=== PATIENT | female | born 1950 | race Caucasian/White ===

== ENCOUNTER 2016-12-23 06:50 | Day surgery (SDC) | payer MEDICARE, BC, OTHER ==
[~2016-12-23] VITALS: Ht 162.6 cm; Wt 87.1 kg
[~2016-12-23 06:50] MED LIST: ADVAIR 500-501 EACH INH; AZELASTINE205.5 MCG/ NS; AZO STANDARD95 MG PO; CELECOXIB200 MG PO; DIAZEPAM2 MG PO; GABAPENTIN300 MG PO; ICAPS TABLET1 EACH PO; LEVOTHYROXINE25 MCG PO; LIPITOR40 MG PO; LOSARTAN POTAS100 MG PO; LOSARTAN-HCTZ1 EAC2 PO; METFORMIN HCL1000 MG PO; MONTELUKAST SOD10 MG PO; MULTIVITAMINS1 EAC7 PO; NASONEX17 GM NS; OXYCODONE-ACET1 EAC1 PO; RANITIDINE HCL150 MG PO; RIZATRIPTAN10 MG PO; ROPINIROLE HCL1 MG PO; TIZANIDINE HCL4 M1 PO; TOPIRAMATE25 MG PO; TRAMADOL HCL100 MG PO; TRAMADOL HCL50 MG PO; VENTOLIN HFA18 GM INH; VITAMIN D1000 UNI1 PO; XARELTO10 MG PO; ZOLPIDEM TARTRA10 MG PO
--- NOTE | 2016-12-23 08:48 | NUR ---
12/23/16 0848 Liz Edouard REPORT FROM [employer] [employer].
--- NOTE | 2016-12-23 09:35 | NUR ---
PT SEEMED RELAXED, ALERT AND ORIENTED. PT HAS HAD PREVIOUS SCOPES, DID NOT HAVE ANY QUESTIONS, REQUESTED PRAYER
--- NOTE | 2016-12-24 11:14 | OR ---
[facility] [address], [place] [address] Signed DATE OF PROCEDURE: 12/23/16 PREOPERATIVE DIAGNOSIS: Personal history of colonic polyps (2011). POSTOPERATIVE DIAGNOSES 3 mm sessile polyps x2 at 7 cm. 4 mm sessile polyps x2 at mid transverse colon. 4 mm sessile polyp at 50 cm. Minimal sigmoid diverticulosis. Minimal to moderate internal hemorrhoids. PROCEDURE: Colonoscopy with hot biopsy. ESTIMATED BLOOD LOSS: None. INDICATIONS Eli is a 66-year-old female asked to see me for followup colonoscopy. She had a serrated adenomatous polyp removed in her transverse colon in August 2011. She returns now without any lower GI complaints. There is no family history of colon cancer or polyps. In the office, I gave her a pamphlet on colonoscopy and we reviewed the nature of the test along with its risks including, but not limited to gas bloating, crampy abdominal pain, bleeding, perforation requiring surgery and missed diagnosis. We also discussed the need for IV conscious sedation. Estella is overweight with a heavy thick neck, heavy jaw. She also has to take daily pain medication along with Tizanidine for her back. She also is a diabetic. She uses daily Diazepam as well. She has also been on Xarelto because of her deep vein thrombosis and we had to hold that for couple of days here before the procedure. She had expressed understanding and wished to proceed. PROCEDURE NOTE Estella was taken into our endoscopy suite and placed in the left lateral de cubitus position. She was given IV sedation with Propofol per nurse culvert installer. We found that, that proved to be very helpful during her procedure as she had a moderately difficult endoscopy. Once she was sedated, a digital rectal exam was performed. This was unremarkable. The adult colonoscope was introduced and advanced under direct visualization of camera. We did remove those 2 polyps in the rectum. We came around the rectosigmoid junction and we spent quite a bit of time getting up through anangulated, redundant sigmoid colon. This took abdominal compression as well as additional sedation in order to advance the scope. We finally made it through that area and with gentle pressure then, the scope passed up into the cecum itself. Her prep was good. The scope was then slowly withdrawn. We removed the other polyps with the help of hot biopsy forceps. We saw just a couple of diverticuli in her sigmoid colon. They were moderate in size. Once back in the rectum, the scope had been retroflexed and she has minimal Electronically Signed By: SAVANNA FLEMING MD 12/24/16 1114 PATIENT NAME: ESTELLA [place] [employer] OPERATIVE REPORT DATE OF : 46 PHYSICIAN: SAVANNA FLEMING MD REPORT #: [id number] REPORT IS CONFIDENTIAL AND NOT TO BE RELEASED WITHOUT AUTHORIZATION [facility] [address], [place] [address] Signed moderate standard internal hemorrhoid columns. After this, the gas was suctioned out and the colonoscope removed. Estella tolerated the procedure quite well. RECOMMENDATIONS Eli will follow up in my office in 7-14 days to review her results. MD CLEMENTINA Byrne/Evan /[id number] cc: JENN Astudillo Electronically Signed By: SAVANNA FLEMING MD 12/24/16 1114 PATIENT NAME: ESTELLA IS[place]EL [employer] OPERATIVE REPORT DATE OF : 46 PHYSICIAN: SAVANNA FLEMING MD REPORT #: [id number] REPORT IS CONFIDENTIAL AND NOT TO BE RELEASED WITHOUT AUTHORIZATION
== END 2016-12-23 09:30 | disposition home or self-care (01) ==
LOC: DS 06:50 → OPS 06:50 → DS 08:15 → OPS 08:15
PROVIDERS: Colon & Rectal Surgery
PROC: 0DBE8ZX Excision of Large Intestine, Via Natural or Artificial Opening Endoscopic, Diagnostic (ICD-10-PCS; 2016-12-23)
PROC: 0DBL8ZX Excision of Transverse Colon, Via Natural or Artificial Opening Endoscopic, Diagnostic (ICD-10-PCS; principal; 2016-12-23 08:15)
DX: Z12.11 Encounter for screening for malignant neoplasm of colon (principal); K64.8 Other hemorrhoids; K57.30 Diverticulosis of large intestine without perforation or abscess without bleeding; D12.3 Benign neoplasm of transverse colon; K63.5 Polyp of colon; E11.9 Type 2 diabetes mellitus without complications; I10 Essential (primary) hypertension; E78.5 Hyperlipidemia, unspecified; F32.9 Major depressive disorder, single episode, unspecified; F41.9 Anxiety disorder, unspecified; Z87.891 Personal history of nicotine dependence; Z86.711 Personal history of pulmonary embolism; Z86.010 Personal history of colon polyps; Z79.2 Long term (current) use of antibiotics; Z79.899 Other long term (current) drug therapy; Z98.49 Cataract extraction status, unspecified eye; Z98.890 Other specified postprocedural states
CPT/HCPCS: 00810; 88305; J2250; J2370; J2704; J3010; J7120